=== PATIENT | male | born 1975 | race Caucasian/White ===

== ENCOUNTER 2017-11-21 19:38 | Emergency (ER) | payer OTHER ==
[~2017-11-21] VITALS: Ht 172.7 cm; Wt 79.4 kg
[~2017-11-21 19:38] MED LIST: AUGMENTIN 875-1 EACH PO; IBUPROFEN800 M1 PO
[2017-11-21 19:46] VITALS: BP 130/84
--- NOTE | 2017-11-21 19:52 | ED UPPER/LOWER EXTREMITY COMPL ---
History of Present Illness General Chief Complaint: Suture Removal/Wound Recheck Stated Complaint: SUTURE REMOVAL Source: patient, family Exam Limitations: no limitations Vital Signs & Intake/Output Vital Signs & Intake/Output Vital Signs Date Time Temp Pulse Resp B/P B/P Pulse O2 O2 Flow FiO2 Mean Ox Delivery Rate 11/21 194 98.0 74 18 130/84 96 Room Air ED Intake and Output 11/22 0000 11/21 1200 Intake Total Output Total Balance Patient 175 lb Weight Weight Reported by Patient Measurement Method Allergies Coded Allergies: NO KNOWN ALLERGIES (11/25/11) Reconcile Medications Amoxicillin/Potassium Clav (Augmentin 875-125 Tablet) 875 MG-125 MG TABLET 1 TAB PO BID prophylaxis Ibuprofen 800 MG TABLET 1 TAB PO TID PRN pain Triage Note: PT TO ER FOR SUTURE REMOVAL TO LEFT THUMB. Triage Nurses Notes Reviewed? yes Onset: Gradual Duration: day(s): Timing: recent history Severity: mild HPI: 42 yo gentleman presents for suture removal of left thumb. He has stitches placed after being bitten his dog 7 days ago. He tolerated the antibiotics well. He notes the wound has healed well. He is able to move his fingers without problem. He is otherwise well. Past History Travel History Traveled to [place] past 21 day No Medical History Any Pertinent Medical History? see below for history EENT: allergies Surgical History Surgical History: non-contributory Psychosocial History Who do you live with Spouse Services at Home None What is your primary language Mongolian Tobacco Use: Never used Family History Hx Contributory? No Review of Systems Review of Systems Constitutional: Denies: see HPI. Physical Exam Physical Exam General Appearance: well developed/nourished, no apparent distress Head: atraumatic Ears, Nose, Throat: normal pharynx Neck: normal inspection Cardiovascular/Respiratory: normal breath sounds Hand Left: well healed laceration, sutures intact. Progress Differential Diagnosis: suture removal Plan of Care: sutures removed, steri strips applied close follow up advised. Departure Departure Time of Disposition: 0700 Disposition: HOME OR SELF CARE Condition: Stable Clinical Impression Primary Impression: Encounter for removal of sutures Secondary Impressions: Encounter for wound care Referrals: Jesus Everett MD (PCP/Family) Departure Forms: Customer Survey General Discharge Information
== END 2017-11-21 20:48 ==
LOC: ERH 19:38
DX: Z48.02 Encounter for removal of sutures (principal)